=== PATIENT | female | born 1940 | race Caucasian/White ===

== ENCOUNTER 2017-06-10 16:30 | Emergency (ER) | payer MEDICARE ==
[~2017-06-10] VITALS: Ht 154.9 cm; Wt 61.5 kg
[2017-06-10 16:40] VITALS: BP 133/74; PULSE 62; RESP 16; TEMP 98.6; O2SAT 96
[2017-06-10 17:30] LABS: AUTOMATED NEUTROPHIL # 9.8 TH/MM3 (1.8-7.7); BASOPHIL % 0.3 % (0.0-2.0); EOSINOPHIL # 0.2 TH/MM3 (0-0.4); EOSINOPHIL % 1.4 % (0.0-4.0); HEMATOCRIT 42.1 % (35.0-46.0); HEMOGLOBIN 14.3 GM/DL (11.6-15.3); LYMPH % 7.3 % (9.0-44.0); LYMPHOCYTE # 0.8 TH/MM3 (1.0-4.8); MEAN CELL VOLUME 94.7 FL (80.0-100.0); MEAN CORPUSCULAR HEMOGLOBIN 32.1 PG (27.0-34.0); MEAN CORPUSCULAR HGB CONC 33.9 % (32.0-36.0); MEAN PLATELET VOLUME 8.6 FL (7.0-11.0); MONO % 1.4 % (0.0-8.0); MONOCYTE # 0.2 TH/MM3 (0-0.9); NEUT % 89.6 % (16.0-70.0); PLATELET COUNT 210 TH/MM3 (150-450); RED BLOOD COUNT 4.45 MIL/MM3 (4.00-5.30); RED CELL DISTRIBUTION WIDTH 14.4 % (11.6-17.2); WHITE BLOOD COUNT 10.9 TH/MM3 (4.0-11.0)
[2017-06-10 17:52] LABS: BICARBONATE 28.2 MEQ/L (21.0-32.0); BLOOD UREA NITROGEN 19 MG/DL (7-18); CALCIUM 8.6 MG/DL (8.5-10.1); CHLORIDE 106 MEQ/L (98-107); CREATININE 0.94 MG/DL (0.50-1.00); GLOMERULAR FILTRATION RATE 58 ML/MIN (>89); GLUCOSE,RANDOM 118 MG/DL (74-106); SODIUM (NA) 141 MEQ/L (136-145); TROPONIN I LESS THAN 0.02 NG/ML (0.02-0.05)
[2017-06-10] MEDS ORDERED: METO50TA PO (18:35)
[2017-06-10] MEDS ORDERED: TAMO20TA6 PO (18:35)
[2017-06-10 18:38] VITALS: BP 132/78; PULSE 73; RESP 18; TEMP 98.2; O2SAT 97
--- NOTE | 2017-06-10 19:08 | PD ---
HPI Chief Complaint: Medical Clearance Time Seen by Provider: 18:27 Travel History International Travel<30 days: No Contact w/Intl Traveler<30days: No Traveled to known affect area: No History of Present Illness HPI Patient is a 76-year-old female presenting to the emergency department for evaluation of bilateral bicep pain, a feeling of shakiness. Patient states that she had some alcohol at a jewelry store, after that she developed bilateral bicep heaviness, shakiness that lasted about 20 minutes. She took 2 baby aspirin for this issue. She presented to the [facility] and was advised to go to emergency department. She denies any chest pain, shortness of breath, fever, chills, dizziness, nausea, vomiting, body aches. Patient has a history of breast cancer, she is on tamoxifen, she has a history of hypertension and is on metoprolol. She has no other complaints at this time. Symptom onset was sudden, symptom severity is mild to moderate, symptoms alleviated on their own. PFSH Past Medical History Cancer: Yes (L BREAST CA ) Diminished Hearing: No Hypertension: Yes Immunizations Current: No Tetanus Vaccination: Never Vaccinated Influenza Vaccination: No ?: Not Menopausal: Yes Past Surgical History Eye Surgery: Yes (CATARACT ) Tonsillectomy: Yes Other Surgery: Yes (L LUMPECTOMY ) Social History Alcohol Use: No Tobacco Use: No Substance Use: No Allergies-Medications (Allergen,Severity, Reaction): Coded Allergies: No Known Allergies (Unverified , 06/10/17) Reported Meds & Prescriptions Reported Meds & Active Scripts Active Reported Tamoxifen (Tamoxifen Citrate) 20 Mg Tab 20 Mg PO DAILY Metoprolol Tartrate 50 Mg Tab 50 Mg PO BID Review of Systems Except as stated in HPI: all other systems reviewed are Neg Cardiovascular: No: Chest Pain or Discomfort, Palpitations, Tachycardia, Dyspnea on exertion Respiratory: No: Shortness of Breath Gastrointestinal: No: Nausea, Vomiting, Abdominal Pain Musculoskeletal: Positive: Myalgias Neurologic: No: Weakness, Dizziness Physical Exam Narrative GENERAL: Well-developed, well-nourished, alert elderly female. Presenting in no acute distress. SKIN: Warm and dry. HEAD: Atraumatic. Normocephalic. EYES: Pupils equal and round. No scleral icterus. No injection or drainage. ENT: No nasal bleeding or discharge. Mucous membranes pink and moist. NECK: Trachea midline. No JVD. CARDIOVASCULAR: Regular rate and rhythm. RESPIRATORY: No accessory muscle use. Clear to auscultation. Breath sounds equal bilaterally. GASTROINTESTINAL: Abdomen soft, non-tender, nondistended. Hepatic and splenic margins not palpable. MUSCULOSKELETAL: Extremities without clubbing, cyanosis, or edema. No obvious deformities. NEUROLOGICAL: Awake and alert. No obvious cranial nerve deficits. Motor grossly within normal limits. Five out of 5 muscle strength in the arms and legs. Normal speech. PSYCHIATRIC: Appropriate mood and affect; insight and judgment normal. Data Data Last Documented VS Vital Signs Date Time Temp Pulse Resp B/P (MAP) Pulse Ox O2 Delivery O2 Flow Rate FiO2 06/10/17 19:11 69 18 132/74 (93) 97 Room Air 06/10/17 18:38 98.2 Orders Orders Electrocardiogram (06/10/17 16:45) Complete Blood Count With Diff (06/10/17 16:45) Basic Metabolic Panel (Bmp) (06/10/17 16:45) Ckmb (Isoenzyme) Profile (06/10/17 16:45) Troponin I (06/10/17 16:45) Chest, Single Ap (06/10/17 ) Iv Access Insert/Monitor (06/10/17 18:54) Ecg Monitoring (06/10/17 18:54) Oximetry (06/10/17 18:54) Urinalysis - C+S If Indicated (06/10/17 18:55) Labs Laboratory Tests Test 06/10/17 17:14 White Blood Count 10.9 TH/MM3 Red Blood Count 4.45 MIL/MM3 Hemoglobin 14.3 GM/DL Hematocrit 42.1 % Mean Corpuscular Volume 94.7 FL Mean Corpuscular Hemoglobin 32.1 PG Mean Corpuscular Hemoglobin Concent 33.9 % Red Cell Distribution Width 14.4 % Platelet Count 210 TH/MM3 Mean Platelet Volume 8.6 FL Neutrophils (%) (Auto) 89.6 % Lymphocytes (%) (Auto) 7.3 % Monocytes (%) (Auto) 1.4 % Eosinophils (%) (Auto) 1.4 % Basophils (%) (Auto) 0.3 % Neutrophils # (Auto) 9.8 TH/MM3 Lymphocytes # (Auto) 0.8 TH/MM3 Monocytes # (Auto) 0.2 TH/MM3 Eosinophils # (Auto) 0.2 TH/MM3 Basophils # (Auto) 0.0 TH/MM3 CBC Comment DIFF FINAL Differential Comment Blood Urea Nitrogen 19 MG/DL Creatinine 0.94 MG/DL Random Glucose 118 MG/DL Calcium Level 8.6 MG/DL Sodium Level 141 MEQ/L Potassium Level 4.1 MEQ/L Chloride Level 106 MEQ/L Carbon Dioxide Level 28.2 MEQ/L Anion Gap 7 MEQ/L Estimat Glomerular Filtration Rate 58 ML/MIN Total Creatine Kinase 57 U/L Troponin I LESS THAN 0.02 NG/ML MDM Medical Decision Making Medical Screen Exam Complete: Yes Emergency Medical Condition: Yes Interpretation(s) Laboratory Tests Test 06/10/17 17:14 White Blood Count 10.9 TH/MM3 Red Blood Count 4.45 MIL/MM3 Hemoglobin 14.3 GM/DL Hematocrit 42.1 % Mean Corpuscular Volume 94.7 FL Mean Corpuscular Hemoglobin 32.1 PG Mean Corpuscular Hemoglobin Concent 33.9 % Red Cell Distribution Width 14.4 % Platelet Count 210 TH/MM3 Mean Platelet Volume 8.6 FL Neutrophils (%) (Auto) 89.6 % Lymphocytes (%) (Auto) 7.3 % Monocytes (%) (Auto) 1.4 % Eosinophils (%) (Auto) 1.4 % Basophils (%) (Auto) 0.3 % Neutrophils # (Auto) 9.8 TH/MM3 Lymphocytes # (Auto) 0.8 TH/MM3 Monocytes # (Auto) 0.2 TH/MM3 Eosinophils # (Auto) 0.2 TH/MM3 Basophils # (Auto) 0.0 TH/MM3 CBC Comment DIFF FINAL Differential Comment Blood Urea Nitrogen 19 MG/DL Creatinine 0.94 MG/DL Random Glucose 118 MG/DL Calcium Level 8.6 MG/DL Sodium Level 141 MEQ/L Potassium Level 4.1 MEQ/L Chloride Level 106 MEQ/L Carbon Dioxide Level 28.2 MEQ/L Anion Gap 7 MEQ/L Estimat Glomerular Filtration Rate 58 ML/MIN Total Creatine Kinase 57 U/L Troponin I LESS THAN 0.02 NG/ML Vital Signs Date Time Temp Pulse Resp B/P (MAP) Pulse Ox O2 Delivery O2 Flow Rate FiO2 06/10/17 18:38 98.2 73 18 132/78 (96) 97 Room Air 06/10/17 16:40 98.6 62 16 133/74 (93) 96 Differential Diagnosis Rhabdomyolysis versus ACS versus USA versus muscle strain versus arrhythmia Narrative Course Patient is well-appearing 68-year-old female presenting to emergency department for evaluation of bicep pain and a feeling of shakiness. Patient's vital signs are stable, EKG shows sinus rhythm with frequent PVCs. This was interpreted by my attending physician. CBC with no acute findings Chemistry with no acute findings CK is 57, troponin is less than 0.02 X-ray shows minimal basilar scarring, tortuous aorta, calcified mediastinal lymph nodes. No consolidation or effusion. Patient reported that she had a negative stress test in January. This is discussed with my attending physician. Please see his documentation. Patient is requesting to go home, she was off her chest pain admission but declined. She was advised of the risks. Patient is to follow-up with her primary doctor return to emergency department immediately for any new or worsening symptoms. Patient has been virtually verbalized understanding of these instructions. Patient stable for discharge. I Diagnosis Primary Impression: Muscle ache of extremity Additional Impression: Asymptomatic PVCs Referrals: Primary Care Physician Patient Instructions: General Instructions, Muscle Strain (ED) Additional Instructions: Follow-up with her primary doctor Return to emergency department for any new or worsening symptoms Maintain adequate fluid intake Continue home medications as previously prescribed Med/Other Pt SpecificInfo: No Change to Meds Disposition: 01 DISCHARGE HOME Condition: Stable Nely Stanton Jun 10, 2017 19:08
[2017-06-10 19:11] VITALS: BP 132/74; PULSE 69; RESP 18; O2SAT 97
--- NOTE | 2017-06-10 20:28 | RADRPT ---
EXAM DATE/TIME: 06/10/2017 19:27 [facility] COMPARISON: No previous studies available for comparison. INDICATIONS : Syncopal episode today. Heart flutters and bilateral arm numbness. MEDICAL HISTORY : Carcinoma, breast. SURGICAL HISTORY : Left breast lumpectomy. ENCOUNTER: Initial ACUITY: 1 day PAIN SCORE: 2/10 LOCATION: Bilateral chest FINDINGS: Minimal basilar scarring. No effusion or pneumothorax. Tortuous aorta. Mediastinal lymph node calcifi cations. No pneumothorax. CONCLUSION: 1. Minimal basilar scarring. Tortuous aorta. Calcified mediastinal lymph nodes. No consolidation or e ffusion. Louis Pruitt MD on June 10, 2017 at 20:25 Board Certified Radiologist. This report was verified electronically.
--- NOTE | 2017-06-10 20:49 | PD ---
Data Data Last Documented VS Vital Signs Date Time Temp Pulse Resp B/P (MAP) Pulse Ox O2 Delivery O2 Flow Rate FiO2 06/10/17 21:35 06/10/17 19:11 69 18 97 Room Air 06/10/17 18:38 98.2 Orders Orders Complete Blood Count With Diff (06/10/17 16:45) Basic Metabolic Panel (Bmp) (06/10/17 16:45) Ckmb (Isoenzyme) Profile (06/10/17 16:45) Troponin I (06/10/17 16:45) Chest, Single Ap (06/10/17 ) Iv Access Insert/Monitor (06/10/17 18:54) Ecg Monitoring (06/10/17 18:54) Oximetry (06/10/17 18:54) Ed Discharge Order (06/10/17 20:57) Electrocardiogram (06/10/17 16:59) Labs Laboratory Tests Test 06/10/17 17:14 White Blood Count 10.9 TH/MM3 Red Blood Count 4.45 MIL/MM3 Hemoglobin 14.3 GM/DL Hematocrit 42.1 % Mean Corpuscular Volume 94.7 FL Mean Corpuscular Hemoglobin 32.1 PG Mean Corpuscular Hemoglobin Concent 33.9 % Red Cell Distribution Width 14.4 % Platelet Count 210 TH/MM3 Mean Platelet Volume 8.6 FL Neutrophils (%) (Auto) 89.6 % Lymphocytes (%) (Auto) 7.3 % Monocytes (%) (Auto) 1.4 % Eosinophils (%) (Auto) 1.4 % Basophils (%) (Auto) 0.3 % Neutrophils # (Auto) 9.8 TH/MM3 Lymphocytes # (Auto) 0.8 TH/MM3 Monocytes # (Auto) 0.2 TH/MM3 Eosinophils # (Auto) 0.2 TH/MM3 Basophils # (Auto) 0.0 TH/MM3 CBC Comment DIFF FINAL Differential Comment Blood Urea Nitrogen 19 MG/DL Creatinine 0.94 MG/DL Random Glucose 118 MG/DL Calcium Level 8.6 MG/DL Sodium Level 141 MEQ/L Potassium Level 4.1 MEQ/L Chloride Level 106 MEQ/L Carbon Dioxide Level 28.2 MEQ/L Anion Gap 7 MEQ/L Estimat Glomerular Filtration Rate 58 ML/MIN Total Creatine Kinase 57 U/L Troponin I LESS THAN 0.02 NG/ML MDM Supervised Visit with LEBRON: Yes Narrative Course I, Dr. Gaston, have reviewed the advance practice practitioner's documentation and am in agreement, met with the patient face to face, made the diagnosis, and the medical decision making was done by me. *My assessment and Findings: Patient seen and examined by me in addition to Nely LOPEZ. This is a patient presents with a very nonspecific bilateral bicep and arm funny feeling. Patient has not had any chest symptoms no shortness of breath no chest pain. Patient states she did go to a [employer] store and had an alcoholic beverage today and thinks that had something to do with it. The patient recently had a cardiac catheterization in January at an outside facility and she states there were absolutely no blockages. She is told that she has a condition where the bottom half of her heart beats faster than the top half which her bagging salvager told her everybody has. Probably consistent with PVCs though she has never heard that term before. When I raise the term ventricular tachycardia she had not heard that term either. I discussed with the patient that it is possible that her symptoms could represent some coronary syndrome however it seems very unlikely. We offered her chest pain center admission but she would rather go home she is on vacation. The patient was counseled on the possibility of major adverse cardiac events and that I could leave her or permanently disabled. She verbalized understanding and agreement and she wishes to go home Gigi Gaston MD Jun 10, 2017 20:49
--- NOTE | 2017-06-11 13:09 | EKG ---
Date Performed: 06/10/2017 Time Performed: 16:59:18 PTAGE: 76 years EKG: Sinus rhythm with PVCs and PACs with aberrancy. There is a misplaced V4 lead Small inferior Q waves of undetermin ed significance Recommend repeat tracing with proper cloth bleaching supervisor. ABNORMAL ECG NO PREVIOUS TRACING DOCTOR: Joaquín Loyd Interpretating Date/Time 06/11/2017 13:08:03
== END 2017-06-10 22:02 | disposition home or self-care (01) ==
LOC: NEPC 16:30
DX: M79.1 Myalgia (principal); I49.3 Ventricular premature depolarization; I10 Essential (primary) hypertension; C50.912 Malignant neoplasm of unspecified site of left female breast
CPT/HCPCS: 71045; 80048; 82550; 84484; 85025; 93005; 99285